=== PATIENT | female | born 1940 | race Caucasian/White ===

== ENCOUNTER 2019-07-31 21:07 | Emergency (ER) | payer OTHER ==
[~2019-07-31] VITALS: Ht 165.1 cm; Wt 124.7 kg
[2019-07-31] MEDS ORDERED: JANUVIA100 MG PO (21:54)
[2019-07-31] MEDS ORDERED: LOSARTAN-HCTZ1 EAC3 PO (21:55)
[2019-07-31] MEDS ORDERED: OMEPRAZOLE40 MG PO (21:56)
[2019-07-31] MEDS ORDERED: EVISTA60 MG PO (21:56)
[2019-07-31] MEDS ORDERED: VOLTAREN 50MG T50 MG PO (21:56)
[2019-07-31] MEDS ORDERED: SIMVASTATIN80 MG PO (21:57)
[2019-07-31] MEDS ORDERED: ASA81BEC PO (21:58)
[2019-07-31] MEDS ORDERED: HYTRIN 2MG CAPSU2 MG PO (21:58)
[2019-07-31] MEDS ORDERED: FELODIPINE 5 MG5 M1 PO (21:59)
[2019-07-31 22:42] LABS: ABSOLUTE NEUTROPHILS 5.6 thou/uL (1.4-8.2); BASOPHILS 0.4 % (0.0-2.0); HEMATOCRIT 34.4 % (37.0-47.0); HEMOGLOBIN 11.4 gm/dL (12.0-15.0); LYMPHOCYTES 16.9 % (24.0-44.0); MCH 29.3 pg (26.0-34.0); MCHC 33.1 g/dL (28.0-37.0); MCV 88.6 fL (80.0-100.0); MONOCYTES 5.4 % (1.0-8.0); PLATELET COUNT 183 thou/uL (150-400); POLYS 76.3 % (36.0-66.0); RBC 3.89 mil/uL (4.20-5.00); RDW 14.1 % (10.5-14.5); WBC 7.3 thou/uL (4.0-11.0)
[2019-07-31 22:54] LABS: ANION GAP 8 mmol/L (7-16); BUN 16 mg/dL (7-18); CALCIUM 9.4 mg/dL (8.5-10.1); CHLORIDE 100 mmol/L (98-107); CO2 28 mmol/L (21-32); CREATININE 1.5 mg/dL (0.6-1.0); GLUCOSE 170 mg/dL (74-106); POTASSIUM 3.9 mmol/L (3.5-5.1); SODIUM 136 mmol/L (136-145)
[2019-07-31 23:02] LABS: TROPONIN-I <0.06 ng/mL (<0.06)
[2019-08-01 01:54] VITALS: BP 1523/60
--- NOTE | 2019-08-02 07:43 | EKG ---
[facility] [place] [address] ELECTROCARDIOGRAM REPORT Name: GUSTAVO CONROY Room #: [facility]#: [id number] Admission: 07/31/19 Attend Phys: Discharge: 08/01/19 Date of : 42 Report #: [id number] THIS REPORT FOR: cc: Storm Oneill MD, Rene P. 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: NO : 1940 Requested By: Marty Sosa Order Number: [id number] MD: Will Cazares Measurements Intervals [place] Rate: 101 P: 43 NJ: 207 QRS: -53 QRSD: 124 T: 34 QT: 359 QTc: 466 Interpretive Statements Sinus tachycardia Borderline prolonged [place] interval RBBB and LAFB No previous ECG available for comparison Electronically Signed On 08-02-2019 7:42:23 CDT by Will Cazares [email or web address] <ELECTRONICALLY SIGNED> By: Will Cazares MD, [facility] 08/02/19 0742 30 30 Will Cazares MD, [facility] /EPI
== END 2019-08-01 01:50 | disposition home or self-care (01) ==
LOC: ER 21:07
PROVIDERS: Emergency Medicine
DX: R07.89 Other chest pain (principal); Z79.899 Other long term (current) drug therapy; Z79.82 Long term (current) use of aspirin; R00.2 Palpitations

== ENCOUNTER → 2020-03-14 | Outpatient (CLI) | payer OTHER ==
[~2020-03-14] MED LIST: ASA81BEC PO; EVISTA60 MG PO; FELODIPINE 5 MG5 M1 PO; HYTRIN 2MG CAPSU2 MG PO; JANUVIA100 MG PO; LOSARTAN-HCTZ1 EAC3 PO; OMEPRAZOLE40 MG PO; SIMVASTATIN80 MG PO; VOLTAREN 50MG T50 MG PO
== END ==
LOC: ULTRA 15:24
PROVIDERS: ATTEND Family Medicine
DX: M79.601 Pain in right arm (principal)

== ENCOUNTER 2020-10-28 18:57 | Inpatient (IN) | payer OTHER ==
[~2020-10-28] VITALS: Ht 170.2 cm; Wt 128.4 kg
--- NOTE | ~2020-10-28 | HC ---
[facility] [place] [address] CONSULTATION Name: GUSTAVO CONROY Room #: 244-P [facility] IN M.R.#: [id number] Admission: 10/28/20 Attend Phys: Tee Noel MD Discharge: Date of : 42 Report #: [id number] THIS REPORT FOR: cc: Storm Oneill MD, Rene P. MD Al-Absi,Promise Bush MD ~ DOC #: [id number] Promise Stallings MD DATE OF SERVICE: 10/30/2020 RENAL CONSULTATION REASON FOR CONSULTATION: Acute kidney injury. HISTORY OF PRESENT ILLNESS: A 79-year-old with extensive oncological history. She has diffuse B cell lymphoma diagnosed in 10/2020 after a submandibular lymph node biopsy. She has early stage lung cancer stage IA3, diagnosed in 11/2019. She received stereotactic radiation therapy for that. Most recently, she was discovered to have 10% plasma cells of her bone marrow in 12/2019 as a workup for her lymphoma. 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 She was started on Revlimid and dexamethasone. Second cycle began on October 28. She uses Revlimid, dexamethasone, carfilzomib. She presented with weakness and was not able to provide history given her severe mental status changes. She was found to have significant worsening of her kidney function from a baseline of around 1.5-1.7. She was not making any urine. There was a suspicion that the patient was having sepsis and she was extremely hypotensive and was admitted to the intensive care unit. She is currently being evaluated by Infectious Disease, Hematology/Oncology, Cardiology got involved because of AFib. I was asked to evaluate her renal function. PAST MEDICAL HISTORY: 1. Diabetes mellitus. 2. Lung cancer. 3. Hypertension. 4. Lymphoma. 5. Myeloma. ALLERGIES: SULFA AND LISINOPRIL. FAMILY HISTORY: Hypertension. REVIEW OF SYSTEMS: GENERAL: Significant for fever and chills. CARDIOVASCULAR: No chest pain or palpitation. PULMONARY: No cough or hemoptysis. GASTROINTESTINAL: No nausea or vomiting, but decreased oral intake. [facility] [address] [place] [address] CONSULTATION Name: GUSTAVO CONROY Room #: 244-P [facility] IN M.R.#: [id number] Admission: 10/28/20 Attend Phys: Tee Noel MD Discharge: Date of : 41 Report #: [id number] MUSCULOSKELETAL: Dermatitis of both lower extremities. NEUROLOGICAL: Altered mental status. PHYSICAL EXAMINATION: GENERAL: The patient had acute mental status changes. VITAL SIGNS: Blood pressure was 125/57, on Levophed. She was on Cardizem drip. HEAD AND NECK: No jugular venous distention. CHEST: Decreased air entry, bilateral. CARDIOVASCULAR: No rub. ABDOMEN: Soft, nontender. EXTREMITIES: Lower extremities, +1 edema with dermatitis, cellulitis. LABORATORY VALUES: White blood cell count 5.5, hemoglobin 8.7, platelets 60,000. Sodium is 137, BUN is 33, creatinine is 3.0. IMPRESSION AND PLAN: 1. Severe sepsis with septic shock. 2. Immunocompromised status, receiving multiple chemotherapeutic antibodies and monoclonal therapy for her myeloma. 3. Lung cancer. 4. Lymphoma. 5. Myeloma. 6. Acute kidney injury. The patient's acute kidney injury is well explained by her current presentation. 7. Continue IV fluid. 8. Septic workup initiated. 9. Appropriate antibiotic initiated. 10. Keep on the IV fluid. 11. Follow up cultures. 12. Wean off pressors. 13. We will continue to follow. Promise Stallings MD AIA/GROVER By: [id number] Promise Stallings MD /nt
[~2020-10-28 18:57] MED LIST changes: +LOSARTAN POTAS100 MG PO; -LOSARTAN-HCTZ1 EAC3 PO
[2020-10-28 19:00] VITALS: BP 112/43
[2020-10-28 19:30] LABS: BE(vivo) 0.1 mmol/L (-2 to +3); HCO3 23.4 mmol/L (22.0-26.0); PCO2 32.6 mmHg (35.0-45.0); PO2 61.8 mmHg (80.0-100.0); pH 7.473 (7.360-7.450); sO2 93.3 % (92.0-98.0)
[2020-10-28 19:57] LABS: ABSOLUTE NEUTROPHILS 1.5 thou/uL (1.4-8.2)
[2020-10-28 19:58] LABS: BASOPHILS 0.5 % (0.0-2.0); EOSINOPHILS 2.3 % (0.0-3.0); HEMATOCRIT 27.2 % (37.0-47.0); HEMOGLOBIN 9.2 gm/dL (12.0-15.0); LYMPHOCYTES 24.8 % (24.0-44.0); MCH 31.3 pg (26.0-34.0); MCHC 33.7 g/dL (28.0-37.0); MCV 92.9 fL (80.0-100.0); MONOCYTES 4.8 % (1.0-8.0); PLATELET COUNT 59 thou/uL (150-400); POLYS 67.6 % (36.0-66.0); RBC 2.93 mil/uL (4.20-5.00); RDW 17.9 % (10.5-14.5); WBC 2.2 thou/uL (4.0-11.0)
[2020-10-28 20:23] LABS: ALBUMIN 2.1 g/dL (3.4-5.0); CALCIUM 7.6 mg/dL (8.5-10.1); CREATININE 1.7 mg/dL (0.6-1.0); POTASSIUM 3.3 mmol/L (3.5-5.1); TOTAL BILIRUBIN 0.5 mg/dL (0.2-1.0); TOTAL PROTEIN 4.5 g/dL (6.4-8.2)
[2020-10-28 20:32] LABS: URINE BILIRUBIN NEGATIVE (Negative); URINE BLOOD NEGATIVE (Negative); URINE CLARITY CLEAR; URINE COLOR YELLOW; URINE GLUCOSE-RANDOM* 1+ (Negative); URINE KETONES NEGATIVE (Negative); URINE LEUKOCYTES-REFLEX NEGATIVE (Negative); URINE NITRITE-REFLEX NEGATIVE (Negative); URINE PROTEIN (DIPSTICK) TRACE (Negative); URINE SPECIFIC GRAVITY 1.015 (1.005-1.035); URINE UROBILINOGEN 0.2 E.U./dl (0.2-1.0)
[2020-10-28 21:47] VITALS: BP 134/38
[2020-10-28] MEDS ORDERED: ATORVASTATIN CA20 MG PO (22:01)
[2020-10-28] MEDS ORDERED: HYDROCODON-ACE1 EAC7 PO (22:01)
[2020-10-28] MEDS ORDERED: FUROSEMIDE 40 M40 M1 PO (22:03)
[2020-10-28] MEDS ORDERED: NEURONTIN300 MG PO (22:04)
[2020-10-28] MEDS ORDERED: KLOR-CON M2020 MEQ PO (22:05)
[2020-10-28] MEDS ORDERED: GABAPENTIN600 M1 PO (22:06)
[2020-10-28] MEDS ORDERED: NORVASC5 MG PO (22:18)
[2020-10-28] MEDS ORDERED: ACYCLOVIR 400400 MG PO (22:18)
[2020-10-28] MEDS ORDERED: CLONIDINE HCL0.1 MG PO (22:19)
[2020-10-28 22:44] VITALS: BP 131/99
[2020-10-28 23:56] VITALS: BP 109/42
[2020-10-29] VITALS (104 sets, daily range): BP systolic 65–187; BP diastolic 24–156
--- NOTE | 2020-10-29 00:10 | NUR ---
RECEIVED REPORT FROM ER NURSE. PT ARRIVED TO 2N ROOM 206 AT 2225. PT WAS INITIALLY VERY LETHARGIC BUT BECAME MORE ARROUSABLE AND WAS ABLE TO FOLLOW SIMPLE COMMANDS. ADMISSION HX AND ASSESSMENT COMPLETED WITH HELP FROM . IVF AND ABX ADMINISTERED ORDERED. AXILLARY TEMP 103.5. TYLENOL SUPPOSITORY GIVEN AND ICE PACKS APPLIED TO AXILLA. PT NOTED TO HAVE REDNESS AND VERY WARM SKIN TO BLE, POSSIBLE CELLULITIS. ELEVATED LEGS ON PILLOWS. [place] ALLRED NP FOR HOSPITALIST CAME TO SEE PT AND RECOMMENDED TRANSFER TO ICU. AROUND MIDNIGHT, PT WAS TRANSFERED TO ICU WITH HER BELONGINGS. REPORT GIVEN TO MEDICAL AFFAIRS MANAGER. PT'S WAS GIVEN CAB VOUCHER TO GET HOME HE DOES NOT DRIVE.
[2020-10-29 03:26] LABS: HEMATOCRIT 26.2 % (37.0-47.0); HEMOGLOBIN 8.7 gm/dL (12.0-15.0); MCH 31.3 pg (26.0-34.0); MCHC 33.3 g/dL (28.0-37.0); MCV 94.2 fL (80.0-100.0); RBC 2.78 mil/uL (4.20-5.00); RDW 17.8 % (10.5-14.5); WBC 4.4 thou/uL (4.0-11.0)
[2020-10-29 03:31] LABS: CALCIUM 6.4 mg/dL (8.5-10.1); CREATININE 2.3 mg/dL (0.6-1.0)
[2020-10-29 03:39] LABS: APTT 32.5 Seconds (24.5-32.8); INR 1.22; PROTIME 13.2 Seconds (10.5-12.1)
--- NOTE | 2020-10-29 07:09 | EKG ---
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 : 1940 Requested By: Jaylon Gaines Order Number: [id number] MD: Emmett Hernandez Measurements Intervals [place] Rate: 103 P: 0 WV: 59 QRS: -57 QRSD: 134 T: 78 QT: 345 QTc: 452 Interpretive Statements Sinus tachycardia Atrial premature complexes Probable left atrial enlargement Nonspecific IVCD with LAD Left ventricular hypertrophy Anterior Q waves, possibly due to LVH Lateral leads are also involved Compared to ECG 07/31/2019 21:31:16 Atrial premature complex(es) now present Intraventricular conduction delay now present Left anterior fascicular block no longer present Right bundle-branch block no longer present Electronically Signed On 10-29-2020 7:09:21 CDT by Emmett Hernandez [email or web address] <ELECTRONICALLY SIGNED> By: Emmett Hernandez MD, [facility] 10/29/20 07 04 04 Emmett Hernandez MD, [facility] /EPI
--- NOTE | 2020-10-29 08:10 | NUR ---
TRIED PAGING DR. BLEVINS. NO URINE OUTPUT. AWAITING CALL BACK.
--- NOTE | 2020-10-29 08:35 | NUR ---
DR. BLANE LOCKETT CALLED BACK. UPDATE GIVEN. HISTORY GIVEN. MD STATES HE WILL ROUND ON PATIENT LATER. NO ORDERS.
--- NOTE | 2020-10-29 08:45 | NUR ---
TEXTED DR. BLEVINS ABOUT NO URINE OUTPUT AWAITING RESPONSE. DR. LUBIN HERE AND ROUNDED ON PT.
--- NOTE | 2020-10-29 09:30 | NUR ---
PT CALLED. UPDATE GIVEN. REPORTED NO URINE OUTPUT AND KIDNEY CONSULT DONE. EMOTIONAL SUPPORT GIVEN.
[2020-10-29] MEDS ORDERED: BISOPROLOL FUMAR5 MG PO (09:52)
[2020-10-29] MEDS ORDERED: HYDROCHLOROTH12.5 M2 PO (09:53)
[2020-10-29] MEDS ORDERED: REVLIMID10 MG PO (10:03)
[2020-10-29] MEDS ORDERED: DEXAMETHASONE 44 M1 PO (10:05)
[2020-10-29] MEDS ORDERED: KYPROLIS30 MG (10:06)
--- NOTE | 2020-10-29 12:15 | NUR ---
DR. LUBIN CALLED, UPDATE GIVEN, STILL NO URINE DESPITE NEW CATHETER. ORDERS GIVEN. FLUID BOLUS STARTED AND WILL GIVEN LASIX AFTERWARD. DR. BLANE LOCKETT HERE. UPDATE GIVEN. ROUNDED ON PT. ORDERS GIVEN.
--- NOTE | 2020-10-29 14:14 | NUR ---
Chart review. Discussed during los and am rounds. She was resting with CPAP on and eye closed. Noted ID consulted. She been getting chemo at and became very weak at home. Will cont. following as needed for dc needs.
--- NOTE | 2020-10-29 14:47 | NUR ---
PT WITH HR 150S-160S. REGULAR, COULD BE AFLUTTER. STAT EKG ORDERED. DR. BLEVINS CALLED. CONSULTS FOR DR. ELIZONDO AND DR. CHRISTEN CARMEN.
--- NOTE | 2020-10-29 15:10 | NUR ---
12 LEAD EKG DONE. PT ASYMPTOMATIC. DR. ELIZONDO HERE. ORDERS GIVEN FOR AMIODARONE BOLUS AND GTT PER PROTOCOL AND CARDIZEM TO START AT LOW RATE GIVEN LEVOPHED INFUSING. AWAITING MEDS. PT AT BEDSIDE AND UPDATED. PT STARTING TO MAKE ADEQUATE URINE NOW.
--- NOTE | 2020-10-29 15:37 | EKG ---
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: FSCHWALBE : 1940 Requested By: Tee Noel Order Number: [id number] MD: Emmett Hernandez Measurements Intervals [place] Rate: 159 P: NJ: QRS: -66 QRSD: 125 T: 112 QT: 296 QTc: 482 Interpretive Statements RBBB Suspect atrial flutter 2:1 block Baseline wander in lead(s) V6 Compared to ECG 10/28/2020 19:05:52 Sinus tachycardia no longer present Atrial premature complex(es) no longer present Left ventricular hypertrophy no longer present Q waves no longer present Electronically Signed On 10-29-2020 15:37:29 CDT by Emmett Hernandez [email or web address] <ELECTRONICALLY SIGNED> By: Emmett Hernandez MD, FAC 10/29/20 1537 1506 1506 Emmett Hernandez MD, FAC /EPI
--- NOTE | 2020-10-29 17:00 | NUR ---
pt temp starting to go up again. shivering. Called Dr. cleveland for tylenol orders and diet orders. Orders given. Pt started on clear liquid diet.
--- NOTE | 2020-10-29 18:51 | NUR ---
PT NOT PROGRESSING TOWARDS GOALS. REMAINS ON 20MCG/MIN OF LEVOPHED. HR STILL 150S. AMIODARONE AND CARDIZEM ON. TOLORATING CLEAR LIQUIDS. C/O SORE THROAT. WARM BROTH GIVEN. TYLENOL X 1 FOR FEVER GIVEN. LEGS ELEVATED ON TWO PILLOWS.
[2020-10-30] VITALS (51 sets, daily range): BP systolic 92–147; BP diastolic 36–108
[2020-10-30 05:18] LABS: HEMATOCRIT 25.8 % (37.0-47.0); HEMOGLOBIN 8.7 gm/dL (12.0-15.0); MCH 31.9 pg (26.0-34.0); MCHC 33.6 g/dL (28.0-37.0); PLATELET COUNT 60 thou/uL (150-400); RBC 2.71 mil/uL (4.20-5.00); RDW 18.5 % (10.5-14.5); WBC 5.5 thou/uL (4.0-11.0)
[2020-10-30 06:03] LABS: CALCIUM 6.4 mg/dL (8.5-10.1); POTASSIUM 4.1 mmol/L (3.5-5.1)
--- NOTE | 2020-10-30 07:59 | HC ---
[facility] [place] [address] CONSULTATION Name: GUSTAVO CONROY Room #: [facility]-P ADM IN M.R.#: [id number] Admission: 10/28/20 Attend Phys: Tee Noel MD Discharge: Date of : 42 Report #: [id number] THIS REPORT FOR: cc: Storm Oneill MD, Rene P. MD McKittrick, Richard James MD ~ DOC #: [id number] cc: Strom Oneill MD, Tee Noel MD, Geovanny Geronimo MD, MD Emerson Xie MD REQUESTING PHYSICIAN: Tee Noel M.D. REASON FOR CONSULTATION: History of myeloma. HISTORY OF PRESENT ILLNESS: The patient is a 79-year-old female who was seen in the office yesterday by our nurse practitioner for her cycle #2, day #15 carfilzomib chemotherapy. She was somewhat weak then, but reported when she got home with her , was unable to get out of the vehicle by herself. He called the hammerer and she was brought to the hospital where she has had a fever up to 103.5, has been weak and was admitted. Note that last night, her pressure was low and so she was moved to the ICU. Her lactic acid had increased. She is now on pressors and also receiving 3 liters per nasal cannula oxygen. The patient is examined in the ICU. The patient at this time has some neck pain, which she thinks is from the bed. She says she did have thrush, which she thinks is improved. She is not aware of any neck mass. She is not aware of any definite nausea or stomach feels a bit unsettled. She does not describe diarrhea or constipation. Does not describe dysuria. Does not describe any blood or urine or stool. Does having the leg swelling of several months' duration. They have tried different diuretics and has been slightly red. She thinks more in the left back calf than the right back calf and she reports being weaker. Past history mostly from the chart is notable for multiple myeloma appears to be a kappa subtype originally found on a bone marrow biopsy done as staging of the lymphoma in 12/2019. At that time, there was 10% cells, reportedly her myeloma progressed and then she began Revlimid and dexamethasone, I believe in May. Her protein did not decrease much and then carfilzomib was added, I believe in September. Since that time, there has been a big or very large decrease in her kappa light chain and her serum free light chain ratio. As mentioned above, she has been receiving carfilzomib, Revlimid 10 mg days 1 through 21 out of 28 days and then the weekly dexamethasone 20 mg weekly. Past history is also notable for diffuse large B cell lymphoma, germinal center type found on a submandibular biopsy on 12/04/2019, this was found after an [facility] [address] [place] [address] CONSULTATION Name: RAFIQFALLONKATRINA Room #: 244-P [facility] IN M.R.#: [id number] Admission: 10/28/20 Attend Phys: Tee Noel MD Discharge: Date of : 42 Report #: [id number] earlier CAT scan done to evaluate chest pain, found a lung nodule, then a PET scan found the submandibular lymph node. The patient received 4 cycles of mini-CHOP x4 between 12/2019 in 02/2020. With regards to the lung nodule, it was PET avid. No biopsy was performed but thought that clinically it was most likely a malignancy and this received SBRT radiation therapy completed in the fall of 2019. The patient also has a history of hypertension, diabetes, neuropathy, hyperlipidemia. There also may be a question of sleep apnea. We need to clarify, there is a comment made, this sounds like the patient might have been on CPAP at home, but I am not sure if it is clear. FAMILY HISTORY: No blood disorders in her parents. She did have a son . She has a daughter that is alive. SOCIAL HISTORY: She is originally from [place] herself. She tells me that her mother made up her name, Gustavo. She has a supportive . She mostly worked at home. Her works for [employer] not sure what role. I do not believe she is a smoker or drinker. MEDICATIONS: At this time in the hospital currently include famotidine 10 b.i.d. IV, vancomycin 500 mg IV q. 12, guaifenesin 600 mg b.i.d., vasopressin drip, norepinephrine drip, also receiving Zosyn 3.375 IV q. 8, ipratropium, albuterol inhalation therapy, Tylenol p.r.n., MiraLax p.r.n., Zofran p.r.n. LABORATORY DATA: Here are notable for creatinine originally 1.7, this morning 2.3. Liver functions normal. Albumin low at 2.1 yesterday. Lactic acid, which was 2.1 on admission, was up to 3 late last night, this morning is 3.8. INR 1.22. APTT 32.5. Fibrinogen 281 yesterday. White count yesterday was 2.2, today is 4.4, hemoglobin yesterday 9.2, today 8.7, platelets which were yesterday 59, are today 77, absolute neutrophils yesterday were 1.5. No differential today. COVID test was negative. UA did not appear to show any specific abnormalities. Imaging done here so far includes a chest x-ray that raised the question of nonventilation the lungs with hypoventilatory states in the lung bases with possible infiltrate the left lower lobe and lingula. PHYSICAL EXAMINATION: VITAL SIGNS: Height is 5 feet 7, 170.2 cm, weight 247.6 or 255 pounds, which would be roughly 112 or 115.9 kilograms. Recent blood pressure is 120/39 again that is with pressors, O2 sat 97%, respirations 13, temperature currently 99.9, pulse 111, oxygen needs at this time, currently at 3 liters per nasal cannula, O2 sat of 97. Mood: The patient is pleasant and somewhat fuzzy answers due to fatigue. NEUROLOGIC: Speech pattern slow but appears accurate, thought pattern appeared adequate, though she is a little bit slow in her mentation and localization, able to move arms a little bit. FACE: Symmetrical. [facility] [address] [place] [address] CONSULTATION Name: GUSTAVO CONROY Room #: [address] [place] [address] IN M.R.#: [id number] Admission: 10/28/20 Attend Phys: Tee Noel MD Discharge: Date of : 42 Report #: [id number] LUNGS: Appear to be clear without rhonchi or wheezes anteriorly. HEENT: Oropharynx without leukoplakia or erythema or ulcerations. ABDOMEN: Quite obese. No masses. HEART: Regular rate, a little tachycardic. EXTREMITIES: Have some edema up to about the knee, also has redness on both her shins and above her ankles and also in the back of her calves. She reports there has been some weeping that I did not notice any at this time, but that maybe in the dependent part of her leg. ASSESSMENT AND PLAN: 1. [place] light chain myeloma as above the patient appears to be responding to her Revlimid, carfilzomib, and dexamethasone. 2. Diffuse large B cell lymphoma, stage 1 by history, not known to be recurrent. 3. Presumed lung cancer, status post SBRT. 4. Presumed or apparent sepsis. Cultures negative, may be either related to cellulitis or early pneumonia. The patient on broad spectrum antibiotics. Cultures are pending. Also, patient on pressors for pressure support. 5. Acute kidney injury with decreased urine output. Defer pressors and fluids to others. 6. Cellulitis. Baseline visual impression obtained. We will follow clinically. The patient on antibiotics. 7. Respiratory failure. The patient is requiring 3 liters of oxygen. Continue monitoring. 8. Bilateral leg swelling, had been on some outpatient Lasix. We will defer to others. Recent outpatient ultrasound unremarkable. 9. Cytopenias, likely partly related to myeloma conditioning chemotherapy. 10. Hypertension history. Management per others. 11. Diabetes type 2 history. Management per others. 12. Hyperlipidemia. Management per others. 13. History of neuropathy management per others. 14. History of H. pylori infection with reported GI ulcerations. The patient on management, will need outpatient followup. 15. Recent thrush infection reported therapies. No evidence at this time. We will follow with you. MD BRANDY Alejandro/DEAN <ELECTRONICALLY SIGNED> By: Emerson Griffiths MD 10/30/20 0759 075 52 Emerson Griffiths MD /nt
--- NOTE | 2020-10-30 09:15 | 2DMMODE ---
[facility] [place] [address] 2 D/M-MODE ECHOCARDIOGRAM Name: GUSTAVO CONROY Room #: 244-P ADM IN M.R.#: [id number] Admission: 10/28/20 Attend Phys: Tee Noel MD Discharge: Date of : 42 Report #: [id number] THIS REPORT FOR: cc: Storm Oneill MD, Rene P. MD Santiago, Patrick MD [facility] ~ APPROVED REPORT Study performed: 10/30/2020 08:15:12 EXAM: Comprehensive 2D, Doppler, and color-flow Echocardiogram Patient Location: ICU Room #: 244 Status: routine BSA: 2.14 HR: 110 bpm BP: 125/57 mmHg Rhythm: AFlutter/tachy Other Information Study Quality: Good Indications Aflutter, tachycardia. (HR ranged from 95-120bpm). 2D Dimensions RVDd: 37.88 mm IVSd: 12.50 (7-11mm) LVOT Diam: 19.69 (18-24mm) LVDd: 46.40 mm PWd: 12.06 (7-11mm) Ascending Ao: 31.53 (22-36mm) LVDs: 32.98 (25-40mm) Left Atrium: 38.89 (27-40mm) Aortic Root: 30.03 mm Volumes Left Atrial Volume (Systole) Single Plane 4CH: 75.12 mL Single Plane 2CH: 76.75 mL LA ESV Index: 38.00 mL/m2 Aortic Valve AoV Peak Ranjith.: 2.36 m/s AO Peak Gr.: 22.33 mmHg LVOT Max P.51 mmHg LVOT Max V: 1.84 m/s [facility] [address] [address] 2 D/M-MODE ECHOCARDIOGRAM Name: GUSTAVO CONROY Room #: [address] [place] [address] [place] [facility].#: [id number] Admission: 10/28/20 Attend Phys: Cheri Raya Discharge: Date of : 42 Report #: [id number] TRI Vmax: 2.37 cm2 Mitral Valve MV Decel. Time: 187.13 ms MV E Max Ranjith.: 1.21 m/s Pulmonary Valve PV Peak Ranjith.: 1.15 m/s PV Peak Gr.: 5.32 mmHg Tricuspid Valve RAP Estimate: 5.00 mmHg Left Ventricle The left ventricle is normal size. There is normal LV segmental wall motion. Mild concentric left ventricular hypertrophy. Left ventricular systolic function is normal. LVEF is 60%. This study is not technically sufficient to allow evaluation of the LV diastolic function due to tachycardia. Right Ventricle The right ventricle is normal size. The right ventricular systolic function is normal. Atria Left atrium is mildly dilated. The right atrium size is normal. Aortic Valve Aortic valve is trileaflet; mildly calcified. No aortic regurgitation is present. There is no aortic valvular stenosis. Mitral Valve The mitral valve is normal in structure. Mild mitral annular calcification. There is no mitral valve regurgitation noted. No evidence of mitral valve stenosis. Tricuspid Valve The tricuspid valve is normal in structure. There is no tricuspid valve regurgitation noted. Unable to assess PA pressure. Pulmonic Valve The pulmonary valve is normal in structure. Trace pulmonic regurgitation. Great Vessels The aortic root is normal in size. The ascending aorta is normal in [facility] [address] [place] [address] 2 D/M-MODE ECHOCARDIOGRAM Name: [facility] Room #: 244-P ADM IN M.R.#: [id number] Admission: 10/28/20 Attend Phys: Cheri Raya Discharge: Date of : 42 Report #: [id number] size. IVC is normal in size and collapses >50% with inspiration. Pericardium There is no pericardial effusion. <Conclusion> Normal left ventricular size Mild concentric hypertrophy Ejection fraction 60% Normal right ventricular size/function Left atrium mildly dilated Color-flow Doppler study was performed of the aortic/mitral/tricuspid/pulmonary valve Mild aortic valve sclerosis without stenosis Mild mitral annular calcification No mitral valve insufficiency No tricuspid valve insufficiency No pericardial effusion Normal aortic root size. <ELECTRONICALLY SIGNED> By: Emmett Hernandez MD, [facility] 10/30/2015 4 4 Emmett Hernandez MD, FACC /INF
[2020-10-30 09:58] LABS: ABSOLUTE NEUTROPHILS 4.1 thou/uL (1.4-8.2); ANISOCYTOSIS 1+; METAMYELOCYTES 3 %; MYELOCYTES 2 %; PLATELET ESTIMATE DECREASED
[2020-10-30 10:04] LABS: CHOLESTEROL 102 mg/dL (<200); HDL CHOLESTEROL 50 mg/dL (>40); LDL CHOLESTEROL 31 mg/dL (<100); TRIGLYCERIDE 109 mg/dL (<150); VLDL 22 mg/dL (<40)
--- NOTE | 2020-10-30 13:30 | NUR ---
Spouse returned cm call on 10/30/20 9846. intro to cm and dcp. Discussed during los and am rounds. CM visited with pt at bedside. She A & O x 4, pleasant and able to make her needs know. Education on dcp, hh and rehab. She voiced her 1st choice is home and she doesnt feel she will need anything at home. Education on seeing how she does with therapy. Spouse cecy voiced that she might need home health or therapy cause of her weakness. She was up in recliner chair and she needed assist to get up. Noted spouse uses cane to walk with himself. will cont following as needed for dc needs.
--- NOTE | 2020-10-30 15:36 | NUR ---
VAT CONSULTED FOR CVL PLACEMENT. LEFT 6FR TL JACC CATHETER PLACED, TRIMMED 25CM WITH 5CM EXTERNAL. AWAITING CXR FOR PLACEMENT CONFIRMATION. PT TOLERATED WELL.
--- NOTE | 2020-10-30 16:05 | NUR ---
RADIOLOGY REPORT: LEFT IJ TIP OVERLIES SVC. LINE RELEASED FOR USE, PER HOSPITAL VASCULAR ACCESS POLICY.
[2020-10-31] VITALS (31 sets, daily range): BP systolic 83–148; BP diastolic 44–98
[2020-10-31 05:05] LABS: HEMATOCRIT 22.6 % (37.0-47.0); HEMOGLOBIN 7.7 gm/dL (12.0-15.0); MCV 93.9 fL (80.0-100.0); PLATELET COUNT 26 thou/uL (150-400); RBC 2.41 mil/uL (4.20-5.00); RDW 18.5 % (10.5-14.5); WBC 3.5 thou/uL (4.0-11.0)
[2020-10-31 05:49] LABS: ALBUMIN 1.3 g/dL (3.4-5.0); CALCIUM 6.1 mg/dL (8.5-10.1); CREATININE 2.7 mg/dL (0.6-1.0); PHOSPHORUS 3.2 mg/dL (2.5-4.9); POTASSIUM 3.4 mmol/L (3.5-5.1)
--- NOTE | 2020-10-31 05:51 | NUR ---
PT IS MORE ALERT AND ORIENTED OVERALL THAN PREVIOUS NIGHT WITH THIS RN. ENDORSES INCREASING PAIN IN LE, NOTED THAT LEGS ARE BECOMING MORE RED AND WEEPING THROUGH THIS SHIFT, ELEVATED X2 PILLOWS EACH. RESTING QUIETLY FOR MOST OF SHIFT. UP TO BSC X2 RN AND GAIT BELT FOR PIVOT, DID FAIR. SLOWLY PROGRESSING TOWARD GOALS. CARDIZEM OFF SINCE 0000, HR MAINTAINING 70-80'S, STILL REMAINS VERY IRREGULAR, INTERMITTENT AFIB/SR,
--- NOTE | 2020-10-31 08:45 | NUR ---
WOUND CARE CONSULT; PT AWAKE, ALERT, COOPERATIVE, STATES SHE HAS HX LOWER LEG EDEMA, BUT NOT THIS SEVERE AND NOW PAINFUL. ASSESSED LE W/ KERFER MACHINE OPERATOR, REDNESS BILAT, L>R, WEEPING, EDEMATOUS, SLIGHTLY WARM TO TOUCH, HAVING ULTRA SOUND THIS AM TO R/O BLOOD CLOT, ON ANTIBIOTICS FOR CELLULITIS, WILL CONSULT WOUND DR, LYMPHEDEMA WRAPS? KERFER MACHINE OPERATOR AWARE
--- NOTE | 2020-10-31 12:00 | NUR ---
Discussed during los and am rounds. No anticipated dc over the weekend. Will cont. following as needed for dc needs. To work with therapy over the weekend to maximize strength in order to be able to dc home with possible hh if needed early next week.
[2020-10-31 13:05] LABS: ABSOLUTE NEUTROPHILS 2.1 thou/uL (1.4-8.2); ANISOCYTOSIS 1+; LARGE PLATELETS RARE; PLATELET ESTIMATE MARKEDLY DECREASED
--- NOTE | 2020-10-31 13:16 | EKG ---
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: NIKIA : 1940 Requested By: Roselia Briones Order Number: [id number] MD: Emmett Hernandez Measurements Intervals [place] Rate: 89 P: -13 MS: 190 QRS: -41 QRSD: 115 T: 7 QT: 414 QTc: 504 Interpretive Statements Sinus rhythm with PAC's Multiple premature complexes, vent & supraven Left anterior fascicular block Low voltage, precordial leads Borderline T abnormalities, anterior leads Compared to ECG 10/29/2020 15:06:04 Left anterior fascicular block now present Low QRS voltage now present T-wave abnormality now present Right bundle-branch block no longer present Atrial flutter no longer present 2:1 AV block no longer present Electronically Signed On 10-31-2020 13:16:40 CDT by Emmett Hernandez [email or web address] <ELECTRONICALLY SIGNED> By: Emmett Hernandez MD, [facility] 10/31/20 1316 [id number] Emmett Hernandez MD, [facility] /EPI
[2020-11-01] VITALS (21 sets, daily range): BP systolic 125–170; BP diastolic 53–78
[2020-11-01 05:02] LABS: HEMATOCRIT 23.9 % (37.0-47.0); MCH 31.7 pg (26.0-34.0); MCHC 33.7 g/dL (28.0-37.0); MCV 94.2 fL (80.0-100.0); RBC 2.54 mil/uL (4.20-5.00); RDW 18.8 % (10.5-14.5); WBC 2.8 thou/uL (4.0-11.0)
[2020-11-01 05:09] LABS: ALBUMIN 1.4 g/dL (3.4-5.0); CALCIUM 6.3 mg/dL (8.5-10.1); CREATININE 2.3 mg/dL (0.6-1.0); PHOSPHORUS 2.7 mg/dL (2.5-4.9); POTASSIUM 3.5 mmol/L (3.5-5.1)
--- NOTE | 2020-11-01 06:09 | NUR ---
PT UP TO BSC WITH WALKERX2 ASSIST. RESTING THROUGHOUT SHIFT. AFIB, RATES UP TO 150'S WHEN UP TO COMMODE, SELF CORRECTED, MAINTAINING 80-100'S. BP STABLE OFF GTTS. X1 HYDROCODONE FOR PLEURITIC PAIN.
--- NOTE | 2020-11-01 09:15 | NUR ---
Pt given incentive spirometer and instructed on use per Dr. Griffiths.
--- NOTE | 2020-11-01 10:14 | NUR ---
Pt appetite poor - RN encouraged pt to ask family to bring high protein foods she would eat. Given crackers and PB after poor breakfast intake. Pt symptomatic - hands shaking, feeling light headed - improved after snack.
--- NOTE | 2020-11-01 17:50 | NUR ---
Pt sitting in chair for lunch and dinner, appetite very poor, difficult to encourage her to eat more than a couple of bites. Pt reports disliking the Ensure provided with each tray, RN encouraged pt to have family bring her favorite foods next time they visit. Encouraged pt to look past lack of salt in current diet and try to eat anyways. Decently mobile with walker and RN assist.
--- NOTE | 2020-11-01 18:47 | NUR ---
Pt leg compression dressings changed. Still very edematous with left leg carrying more edema and larger area of skin breakdown. Pt tolerated dressing change well.
[2020-11-02] VITALS (17 sets, daily range): BP systolic 127–159; BP diastolic 48–866
[2020-11-02 05:47] LABS: ALBUMIN 1.5 g/dL (3.4-5.0); CALCIUM 6.6 mg/dL (8.5-10.1); PHOSPHORUS 2.6 mg/dL (2.5-4.9); POTASSIUM 3.4 mmol/L (3.5-5.1)
--- NOTE | 2020-11-02 08:04 | NUR ---
PT MAKING SLOW PROGRESS TOWARD GOALS. PT SLEEP INTERMITTENTLY OVERNIGHT. WOULD AWAKEN AND BE BRIEFLY CONFUSED ABOUT HER LOCATION BUT WOULD ACCEPT REALITY ORIENTATION EACH TIME. OTHERWISE ORIENTED TO NAME, DATE AND SITUATION.
--- NOTE | 2020-11-02 16:53 | NUR ---
1653- Nurse called report to CCU RN for patient transfer to room 212 from room 244.
--- NOTE | 2020-11-02 17:57 | NUR ---
ASSUMED CARE OF PT AROUND 1729. PT ALERT AND ORIENTED TIMES FOUR. VSS. SR ON TELE, SUN TO DD, IVF INFUSING PER ORDER. PT DENIES PAIN/SOA. PT UP TO CHAIR WITH ASSIST OF TWO. PT TOLERATES MEDS, BUT EAT VERY LITTLE OF DINNER. PT AND DAUGHTERT AT BEDSIDE. WILL CONTINUE TO MONITOR.
[2020-11-03] VITALS (7 sets, daily range): BP systolic 123–170; BP diastolic 54–85
--- NOTE | 2020-11-03 03:42 | NUR ---
PT HAS BEEN SLEEPING MOST OF THE NIGHT, WHILE WEARING HER HOME CPAP. RESPIRATIONS EVEN AND UNLABORED. AFEBRILE. PT WAS IN AFIB EARLIER IN THE NIGHT, BUT HAS SINCE CONVERTED TO SR. BLE WITH DRESSINGS C/D/I; BLE ELEVATED ON PILLOWS TO HELP REDUCE SWELLING. FALL PRECAUTIONS IN PLACE. PROGRESSING SLOWLY TOWARD POC GOALS. WILL CONTINUE TO MONITOR FURTHER.
[2020-11-03 05:15] LABS: HEMATOCRIT 25.8 % (37.0-47.0); HEMOGLOBIN 8.6 gm/dL (12.0-15.0); MCH 31.2 pg (26.0-34.0); MCHC 33.5 g/dL (28.0-37.0); MCV 93.1 fL (80.0-100.0); RBC 2.77 mil/uL (4.20-5.00); RDW 18.7 % (10.5-14.5); WBC 2.9 thou/uL (4.0-11.0)
[2020-11-03 05:24] LABS: ALBUMIN 1.7 g/dL (3.4-5.0); CALCIUM 6.6 mg/dL (8.5-10.1); CREATININE 1.9 mg/dL (0.6-1.0); PHOSPHORUS 2.5 mg/dL (2.6-4.7); POTASSIUM 3.5 mmol/L (3.5-5.1)
--- NOTE | 2020-11-03 14:26 | NUR ---
PATIENT ALERT/ORIENTED, A LITTLE FORGETFUL AT TIMES AND ANXIOUS THIS MORNING. HAD AN EPISODE OF CRYING AFTER PHYSICAL THERAPY ENTERED HER ROOM. PER PATIENT, CONVERSATION HAD MADE HER FEEL VERY ANXIOUS AND FELT LIKE SHE WAS BEING ASKED TO DO MORE THAT SHE CAN PHYSICALLY TOLERATE AT THIS TIME MOBILITY PRITCHETT. SHE UNDERSTANDS SHE IS VERY WEAK. WHILE TRANSFERING FROM BED TO CHAIR PATIENTS HEART RATE BECAME ELEVATED AND IRREGULAR. NOTIFIED CARDIOLOGY OF PRESISTENT TACHYCARDIA. ONETIME DOSE OF LOPRESSOR GIVEN WITH IMPROVEMENT. PATIENT SITTTING IN CHAIR THROUGH OUT THE DAY. VERY POOR APPETITE. CORINNE PATENT. PT/OT AND 5[facility] EVAL.
--- NOTE | 2020-11-03 23:40 | NUR ---
PT SAT UP IN CHAIR TO VISIT WITH FAMILY EARLIER IN THE SHIFT. SHE TOLERATED SITTING IN THE CHAIR WELL. PT DOES BECOME VERY SOA W/ EXERTION BUT SPO2 >90% ON RA. DRESSINGS CHANGED TO BLE CELLULITIS. BLE ELEVATED ON PILLOWS TO REDUCE SWELLING. AFIB ON TELE. HR 120S-140S WITH EXERTION, BUT IMPROVES WITH REST. PROGRESSING SLOWLY TOWARD POC GOALS. WILL CONTINUE TO MONITOR.
--- NOTE | 2020-11-04 03:21 | NUR ---
PT SLEPT MOST OF THE NIGHT WHILE WEARING HER HOME CPAP. RESPIRATIONS EVEN AND UNLABORED. SUN TO DD WITH ADEQUATE URINE OUTPUT. VSS. AFEBRILE. FALL PRECAUTIONS IN PLACE. WILL CONTINUE TO MONITOR.
[2020-11-04 03:55] VITALS: BP 150/72
[2020-11-04 05:44] LABS: ALBUMIN 1.7 g/dL (3.4-5.0); CALCIUM 6.9 mg/dL (8.5-10.1); CREATININE 1.6 mg/dL (0.6-1.0); PHOSPHORUS 2.7 mg/dL (2.6-4.7); POTASSIUM 3.3 mmol/L (3.5-5.1)
--- NOTE | 2020-11-04 08:36 | NUR ---
ASSUMED PT CARE AT 0700. PT SITTING IN CHAIR, PT ASSISTED TO BEDSIDE COMMODE TO ATTEMPT A BOWEL MOVEMENT, UNSUCCESSFUL. PT DENIES PAIN AT THIS TIME. VSS. ASSESSMENT PERFORMED CHARTED. WILL CONTINUE TO MONITOR AND FOLLOW POC.
[2020-11-04 11:17] VITALS: BP 137/84
--- NOTE | 2020-11-04 11:32 | NUR ---
PT SITTING IN CHAIR WITH FAMILY AT BEDSIDE. VSS. ASSESSMENT UNCHANGED. WILL CONTINUE TO MONITOR AND FOLLOW POC.
--- NOTE | 2020-11-04 14:51 | NUR ---
PATIENT IS A CANDIDATE FOR ACUTE REHAB AND WISHES TO COME TO [facility] AT [facility] FOR THAT REHAB. AUTHORIZATION REQUESTED FROM PATIENT'S INSURANCE THIS DATE. AWAITING RESPONSE. GAUGE AND WEIGH MACHINE OPERATOR INFORMED.
--- NOTE | 2020-11-04 16:12 | NUR ---
PT RESTING IN CHAIR, PT AND FAMILY REQUEST TO ASK ABOUT D/C ACCU CHECKS AND INSULIN IF POSSIBLE. PT STATES SHE DOES NOT TAKE INSULIN AT HOME AND HAS NOT REQUIRED ANY DURING HER HOSPITAL STAY. PTS ASSESSMENT UNCHANGED. VSS. WILL CONTINUE TO MONITOR AND FOLLOW POC.
--- NOTE | 2020-11-04 17:29 | NUR ---
met with patient, dtr and spouse at bedside. Reviewed acute rehab and skilled care. Patient, family are interested in [facility] acute rehab here at hospital. Sp with [facility] who will visit with patient, family today. Joana ZIMMERMAN practioner reports interest in [facility] and they will start auth process today.
[2020-11-04 19:36] VITALS: BP 159/59
--- NOTE | 2020-11-05 04:45 | NUR ---
PT SLEPT MOST OF THE NIGHT. SHE REQUESTED TO SLEEP IN THE CHAIR FOR PART OF THE SHIFT. SHE IS STILL WEAK, BUT LESS SOA WITH ACTIVITY. AFIB ON TELE EARLIER IN THE NIGHT, BUT NOW SR W/ BBB. VSS. AFEBRILE. PT HAD LARGE BM DURING THE NIGHT. SHE IS ANTICIPATING GOING TO REHAB SOON. PROGRESSING TOWARD POC GOALS. WILL CONTINUE TO MONITOR.
[2020-11-05 05:40] VITALS: BP 142/61
[2020-11-05 07:55] VITALS: BP 162/72
--- NOTE | 2020-11-05 09:45 | HC ---
[facility] [place] [address] CONSULTATION Name: GUSTAVO CONROY Room #: [facility]- ADM IN M.R.#: [id number] Admission: 10/28/20 Attend Phys: Tee Noel MD Discharge: Date of : 42 Report #: [id number] THIS REPORT FOR: cc: Storm Oneill MD, Rene P. MD Althoff, Jeffrey R. MD ~ DOC #: [id number] Chente Puente MD DATE OF SERVICE: 10/31/2020 CHIEF COMPLAINT: Lower extremity ulcerations. HISTORY OF PRESENT ILLNESS: This is a 79-year-old female patient with history of multiple myeloma, on chemotherapy, who presented to the Emergency Department complaining of weakness. The patient has become increasingly weak and brought to the hospital. She has moved to the ICU due to her lethargy. I have been asked to see her with regard to lower extremity edema. She is not able to provide any information about herself at this time. MEDICATIONS: Include Januvia, losartan, terazosin, enteric-coated aspirin, atorvastatin, hydrocodone, Lasix, gabapentin, amlodipine, clonidine, acyclovir. ALLERGIES: LISINOPRIL AND SULFA. FAMILY HISTORY: Unknown. SOCIAL HISTORY: Negative for alcohol or tobacco use. REVIEW OF SYSTEMS: Not obtainable due to the patient's decreased level of consciousness. PHYSICAL EXAMINATION: VITAL SIGNS: At this time include temperature 100.6, pulse 106, ____. GENERAL: This is a chronically ill-appearing female patient who appears to be mostly somnolent. HEAD: Normocephalic. Nose and throat are clear. NECK: Supple. LUNGS: Diminished. HEART: Irregular. ABDOMEN: Soft. EXTREMITIES: Lower extremities demonstrate 3 to 4+ edema bilaterally. Some weeping. No clearcut ulceration noted at this time. LABORATORY DATA: Sodium 138, potassium 3.4, chloride 107, CO2 of 19, BUN 33, creatinine 2.7, glucose 74. White blood cell count 3.5 with a hemoglobin of 7.7. [address] [address] CONSULTATION Name: GUSTAVO CONROY Room #: 212-P [facility] IN M.R.#: [id number] Admission: 10/28/20 Attend Phys: Tee Noel MD Discharge: Date of : 42 Report #: [id number] CLINICAL IMPRESSION: 1. Cellulitis and lower extremity edema. 2. Acute kidney injury. 3. Bilateral lower extremity cellulitis. 4. Pancytopenia. 5. Severe sepsis. 6. Acute toxic metabolic encephalopathy. 7. History of multiple myeloma. RECOMMENDATIONS: Recommend elevation of the lower extremities as much as possible to reduce edema. Heel protectors in place at all time. We will recommend application of AmLactin to the legs, and then Xeroform gauze, ABD, and Kerlix and Keven from toes to knees, to be changed daily and p.r.n. Recommend q. 2 hours turning and positioning while in bed. Nutritional support as much as possible. Continue with other medical management. Appreciate being asked to see her in consultation. MD REI Foster/MAXIM/HERNAN <ELECTRONICALLY SIGNED> By: Chente Puente MD 11/05/20 0945 1635 [id number] Chente Puente MD /nt
[2020-11-05 10:06] LABS: ALBUMIN 1.8 g/dL (3.4-5.0); CALCIUM 7.1 mg/dL (8.5-10.1); CREATININE 1.4 mg/dL (0.6-1.0); PHOSPHORUS 2.3 mg/dL (2.6-4.7); POTASSIUM 3.1 mmol/L (3.5-5.1)
--- NOTE | 2020-11-05 11:33 | NUR ---
PT SITTING UP IN THE CHAIR, ASSESSMENT UNCHANGED. PT VOICES NO CONCERNS AT THIS TIME. WILL CONTINUE TO MONITOR AND FOLLOW POC.
[2020-11-05 12:06] VITALS: BP 147/70
--- NOTE | 2020-11-05 14:51 | NUR ---
Nutrition: REC order daily MVI and consider Megace.
[2020-11-05 15:43] VITALS: BP 153/77
--- NOTE | 2020-11-05 15:58 | NUR ---
PT UP IN CHAIR, TALKING WITH SPOUSE. VSS. ASSESSMENT UNCHANGED. WILL CONTINUE TO MONITOR AND FOLLOW POC.
[2020-11-05 19:15] VITALS: BP 176/84
[2020-11-05 22:58] VITALS: BP 172/85
[2020-11-06 07:23] VITALS: BP 166/77
[2020-11-06] MEDS ORDERED: METOPROLOL SUCC50 MG PO (08:38)
[2020-11-06] MEDS ORDERED: PACERONE 200 M200 M1 PO (08:38)
[2020-11-06] MEDS ORDERED: CEFDINIR300 MG PO (08:38)
[2020-11-06] MEDS ORDERED: CARDIZEM CD120 MG PO (08:39)
[2020-11-06 08:41] LABS: CALCIUM 7.7 mg/dL (8.5-10.1); CREATININE 1.2 mg/dL (0.6-1.0); PHOSPHORUS 2.3 mg/dL (2.6-4.7); POTASSIUM 3.2 mmol/L (3.5-5.1)
--- NOTE | 2020-11-06 09:15 | NUR ---
ASSUMED PT CARE AT 0700. PT SITTING IN CHAIR. 0845 ASSESSMENT PERFORMED CHARTED, CENTRAL LINE REMOVED PER ORDER BY DR LOCKETT. SUN REMOVED. COVID SWAB PERFORMED FOR [facility] ADMISSIONS. VSS. WILL CONTINUE TO MONITOR AND FOLLOW POC.
[2020-11-06 11:10] VITALS: BP 135/77
--- NOTE | 2020-11-06 11:44 | NUR ---
PT IN CHAIR WITH FAMILY AT BEDSIDE. ASSESSMENT UNCHANGED. PTS PLAN IS TO GO TO [facility] THIS AFTERNOON. VSS. WILL CONTINUE TO MONITOR AND FOLLOW POC.
--- NOTE | 2020-11-06 12:42 | NUR ---
GAVE REPORT TO TALTA HENDERSON RN. TALAT EXPRESSES NO FURTHER QUESTIONS OR CONCERNS AT THIS TIME.
--- NOTE | 2020-11-06 12:50 | NUR ---
Ins auth rec'd and pt dcing to [facility] acute rehab today. Nursing has updated the pt/family. RM 505. [facility] cm to follow for dcplanning.
== END 2020-11-06 13:17 | DRG 871 ==
LOC: ER 18:57 → ICU 21:32 → EROBS 21:32 → 2N 22:34 → ICU 10-29 00:07 → 2N 11-02 17:30
PROVIDERS: Emergency Medicine; Hospitalist; Internal Medicine Pulmonary Disease; Nurse Practitioner Family; ADMIT Hospitalist; ATTEND Hospitalist
DX: A41.9 Sepsis, unspecified organism (principal); J96.01 Acute respiratory failure with hypoxia; J18.9 Pneumonia, unspecified organism; G92 Toxic encephalopathy; R65.21 Severe sepsis with septic shock; E43 Unspecified severe protein-calorie malnutrition; N17.9 Acute kidney failure, unspecified; D61.818 Other pancytopenia; C90.00 Multiple myeloma not having achieved remission; C83.30 Diffuse large B-cell lymphoma, unspecified site; D84.9 Immunodeficiency, unspecified; L03.116 Cellulitis of left lower limb; L03.115 Cellulitis of right lower limb; I48.92 Unspecified atrial flutter; I48.20 Chronic atrial fibrillation, unspecified; Z68.41 Body mass index [BMI] 40.0-44.9, adult; C34.91 Malignant neoplasm of unspecified part of right bronchus or lung; Z20.822 Contact with and (suspected) exposure to COVID-19; E78.5 Hyperlipidemia, unspecified; R53.81 Other malaise; E11.42 Type 2 diabetes mellitus with diabetic polyneuropathy; E66.9 Obesity, unspecified; M19.90 Unspecified osteoarthritis, unspecified site; I44.0 Atrioventricular block, first degree; N18.9 Chronic kidney disease, unspecified; I45.10 Unspecified right bundle-branch block; R91.1 Solitary pulmonary nodule; E87.6 Hypokalemia; I12.9 Hypertensive chronic kidney disease with stage 1 through stage 4 chronic kidney disease, or unspecified chronic kidney disease; I87.8 Other specified disorders of veins; E11.22 Type 2 diabetes mellitus with diabetic chronic kidney disease; Z88.2 Allergy status to sulfonamides; Z88.8 Allergy status to other drugs, medicaments and biological substances
CPT/HCPCS: 10078; 10081

== ENCOUNTER 2020-11-06 10:46 | Inpatient (IN) | payer OTHER ==
[~2020-11-06] VITALS: Ht 160 cm; Wt 122.9 kg
[~2020-11-06 10:46] MED LIST changes: +ACYCLOVIR 400400 MG PO; +ATORVASTATIN CA20 MG PO; +BISOPROLOL FUMAR5 MG PO; +CARDIZEM CD120 MG PO; +CEFDINIR300 MG PO; +CLONIDINE HCL0.1 MG PO; +DEXAMETHASONE 44 M1 PO; +FUROSEMIDE 40 M40 M1 PO; +GABAPENTIN600 M1 PO; +HYDROCHLOROTH12.5 M2 PO; +HYDROCODON-ACE1 EAC7 PO; +KLOR-CON M2020 MEQ PO; +KYPROLIS30 MG; +METOPROLOL SUCC50 MG PO; +NEURONTIN300 MG PO; +NORVASC5 MG PO; +PACERONE 200 M200 M1 PO; +REVLIMID10 MG PO
--- NOTE | 2020-11-06 14:22 | NUR ---
1300 ADMITTED TO ROOM 504. PATIENT IS ALERT AND ORIENTED X4. PATIENT KUMAR'S, LADLE HANDLER ARE EQUAL. LUNGS ARE CLEAR AND DEMINISHED WITH LOOSE COUGH. ABD IS SOFT WITH BSX4. UP TO THE BSC TO VOID PRETTY COLORED URINE. PATIENT HAS PORT-A-CATH ON RIGHT CHEST WALL. PATIENT HAS 3+ EDEMA IN HER LOWER EXTREMITIES. WRAPS ARE ON BOTH LEGS. FAMILY AT BEDSIDE. FALL AND SAFETY PROTOCOLS IN PLACE. DENIES PAIN AT THIS TIME. PT/OT/ST EVALS TO BE DONE IN A.M. WILL CONTINUE TO MONITER.
--- NOTE | 2020-11-06 14:37 | NUR ---
Chart review, She new to acute rehab today. Patient A & O x 4, and able to make her needs know. PCP Dr Oneill. Dorcas is [facility] at [address]. Prior to hospital independent at home, she drives because her can no longer drive. 2 steps with bilat handrails to enter the home, then all on main level. goes to basement to do laundry. She able to manage her own medications. Has cane, rollator, and cpap from [employer]. Got her j-j 1 x covid vaccine in august 2020. Last time had tx for cancer at was last year. Has DPOA already, cm asked if could get copy and family stated should already have one on file here. Education on hh, team meetings and outpt therapy. Daughter in town from [place] and will drive here place if needed, till she is cleared to drive again. No hh or rehab in the past.
[2020-11-06 19:04] VITALS: BP 186/86; BP 186/863
[2020-11-06 20:10] VITALS: BP 175/80
--- NOTE | 2020-11-07 00:01 | NUR ---
PT ALERT AND ORIENTED X 4. UP IN RECLINER ALL EVENING. TRANSFERRED TO BED AT WITH ASSIST X 2. CPAP ON DURING THE NIGHT. LE WRAPS INTACT. RIGHT PORTACATH INTACT. PT VOIDING WITHOUT DIFFICULTY PER BSC. PT C/O COUGH. TESSALON PERLES GIVEN ORDERED. PT DENIES PAIN OR DISCOMFORT. BED ALARM ON FOR SAFETY. PT APPEARS TO BE SLEEPING ON HOURLY ROUNDS.
[2020-11-07 05:24] LABS: HEMATOCRIT 23.6 % (37.0-47.0); HEMOGLOBIN 8.2 gm/dL (12.0-15.0); MCH 32.4 pg (26.0-34.0); MCHC 34.8 g/dL (28.0-37.0); MCV 93.1 fL (80.0-100.0); RBC 2.54 mil/uL (4.20-5.00); RDW 20.4 % (10.5-14.5); WBC 4.5 thou/uL (4.0-11.0)
[2020-11-07 05:31] LABS: ALBUMIN 1.7 g/dL (3.4-5.0); CALCIUM 7.5 mg/dL (8.5-10.1); CREATININE 1.1 mg/dL (0.6-1.0); PHOSPHORUS 2.3 mg/dL (2.5-4.9)
[2020-11-07 05:55] LABS: POTASSIUM 2.6 mmol/L (3.5-5.1)
--- NOTE | 2020-11-07 06:10 | NUR ---
K+ 2.6 THIS MORNING. CALLED TO SHAQUILLE BRYSON NP WITH ORDERS RECEIVED.
[2020-11-07 07:06] LABS: FOLIC ACID 29.5 ng/mL (8.6-58.9)
[2020-11-07 08:30] VITALS: BP 144/111
[2020-11-07 08:35] VITALS: BP 139/68
--- NOTE | 2020-11-07 13:55 | NUR ---
Assumed pt care at 7am.Pt in bed resting without c/o.Assessment completed.vss. But elevated bp noted.Am meds given and well tolerated.Usha Purchasing Associate here,order noted.Potassium po given x2.Dr Goldsmith rounded on pt and no new order noted. Lymphydema wrap done by therapist.Pt up in chair most of the time this shift. Good endurance noted.Family here to visit.Fall bundle in place.Will continue to monitor.
[2020-11-07 20:28] VITALS: BP 164/67
[2020-11-07 23:06] LABS: GLYCOHEMOGLOBIN (HGB A1C) 7.3 % (4.8-5.6)
[2020-11-08 06:20] LABS: CALCIUM 7.4 mg/dL (8.5-10.1); MAGNESIUM 1.2 mg/dL (1.8-2.4); POTASSIUM 3.5 mmol/L (3.5-5.1)
[2020-11-08 08:00] VITALS: BP 146/76
--- NOTE | 2020-11-08 11:00 | NUR ---
ASSUMED CARE AT 0700. ALERT AND ORIENTATED X 3. DENIES ANY PAIN. REPORTED SOME DISCOMFORT FROM LYING IN BED TOO LONG. SACRAL AREA PINK WITH NO BREAKDOWN NOTED. BARRIER CREAM APPLIED. LYMPHEDEMA WRAP IN PLACE. BLE ELEVATED. PT REFUSED MEGESTROL TODAY, DR GANN NOTED. ADDED 2GM OF MAG SULFATE AND GIVEN VIA HER PORTACATH. UPON COMPLETION, VASCULAR TEAM NOTIFIED AND SUMEET DEASSESSED.
[2020-11-08 19:36] VITALS: BP 156/64
--- NOTE | 2020-11-08 23:36 | NUR ---
PT ASSESSMENT COMPLETED AND VSS. MEDS GIVEN ORDERED AND WELL TOLERATED. PT WANTED TO STAY IN HER CHAIR THIS EVENING AND REFUSED THE BED. UP TO THE BATHROOM WITH ASST/GAIT/WALKER. STEADY. LYMPH EDEMA WRAPS ON. PT RESTING WELL. DENIES NEEDS. WILL CONTINUE TO MONITOR FREQUENTLY.
[2020-11-09 07:19] VITALS: BP 138/78
--- NOTE | 2020-11-09 13:55 | NUR ---
ASSUMED CARE AT 0700. ALERT AND ORIENTATED X 4. DENIES ANY PAIN. UP WITH MIN ASSIST TO THE TOILET. NO BM TODAY. HAD COUPLE OF BOWEL MOVEMENTS YESTERDAY, C DIFF IS NEGATIVE. APPETITE IS FAIR, REPORTED LACK OF SALIVA AND PREFERS TO TAKE LIQUID DIET. PARTICIPATED WITH THERAPY.
[2020-11-09 19:14] VITALS: BP 176/76
--- NOTE | 2020-11-10 00:04 | NUR ---
PT ALERT AND ORIENTED X 4. AMB TO BR WITH WALKER AND ASSIST X 1. WRAPS INTACT TO BILAT LE'S. PT DENIES PAIN OR DISCOMFORT. PT SLEEPING IN RECLINER. CHAIR ALARM ON FOR SAFETY. PT APPEARS TO BE SLEEPING ON HOURLY ROUNDS.
[2020-11-10 05:26] LABS: CALCIUM 7.1 mg/dL (8.5-10.1); CREATININE 0.9 mg/dL (0.6-1.0); MAGNESIUM 1.1 mg/dL (1.8-2.4)
[2020-11-10 05:29] LABS: POTASSIUM 2.7 mmol/L (3.5-5.1)
--- NOTE | 2020-11-10 05:35 | NUR ---
K+ 2.7 THIS MORNING. CALLED TO SHAQUILLE BRYSON NP. SHE WILL PUT ORDERS IN.
[2020-11-10 09:48] VITALS: BP 149/76
--- NOTE | 2020-11-10 12:35 | PLAN ---
[facility] [place] [address] [place] [address] REHAB UNIT PLAN OF CARE Name: GUSTAVO CONROY Room #: 504-2 ADM IN M.R.#: [id number] Admission: 11/06/20 Attend Phys: Jaylon Goldsmith MD Discharge: Date of : 42 Report #: [id number] THIS REPORT FOR: cc: Storm Oneill MD, Rene P. MD Smithson,Jaylon Putnam MD ~ DOC #: [id number] Jaylon Goldsmith MD DATE OF SERVICE: 11/08/2020 PROGRESS NOTE/OVERALL PLAN OF CARE HISTORY OF PRESENT ILLNESS: The patient was seen yesterday in the Rehabilitation prieto. She was in no distress. Vitals were stable as noted. Her blood pressures are improved from her initial admission when she came in quite hypotensive. Bilateral lower extremities are wrapped with Keven wraps. She was able to lift bilateral lower extremities antigravity. She is able to follow basic 1-step commands without difficulty. She does have some exogenous obesity. Today, she was involved in functional rehabilitation with transfers at a min assist and she ambulated 70 feet min assist with a front-wheeled walker. In occupational therapy, upper body dressing, supervision with lower body dressing, moderate assistance. She also has been seen in speech therapy and does have mild to moderate cognitive deficits with qwtm-hn-ookrjvwa memory deficits. ASSESSMENT: 1. Toxic metabolic encephalopathy. 2. Medical complexity with generalized debilitation. 3. Severe sepsis. 4. Community-acquired pneumonia. 5. Acute hypoxemic respiratory failure. 6. Atrial fibrillation with rapid ventricular rate. 7. Acute renal insufficiency. 8. Bilateral lower extremity cellulitis with peripheral vascular disease. 9. Pancytopenia. 10. History of multiple myeloma, lymphoma of the neck and history of lung cancer. PLAN: The overall plan of care is based on the pre-admission screen and information garnered from therapy assessments. 1. Estimated length of stay probably around 10-14 days pending progress. 2. Medical prognosis is reasonably good. 3. Anticipated interventions includes the interdisciplinary acute inpatient rehabilitation program. 4. Anticipated functional outcomes would be for the patient to become modified independent with transfers, mobility and ADLs, so that she can hopefully return back to her home setting. She also was to improve as far as overall cognition. [address] [address] REHAB UNIT PLAN OF CARE Name: RAFIQFALLONKATRINA Room #: 504-2 ADM IN .R.#: [id number] Admission: 11/06/20 Attend Phys: Jaylon Goldsmith MD Discharge: Date of : 42 Report #: [id number] 5. Discharge destination would be back to the home setting where she lives in a house with her spouse. Two stairs to enter. She used a cane and a walker prior to admission. There is a daughter from [place] in town and able to help. 6. Expected therapy by discipline includes PT, OT and speech 1 hour per day each five days a week throughout the duration of the acute inpatient rehabilitation stay. ADDENDUM: The patient's prognosis for significant practical improvement within a reasonable period of time appears good. Given the patient's complex medical condition and risk of further medical complication, rehabilitation services could not be safely provided at a lower level of care such as a nursing home facility. Jaylon Goldsmith MD DGS <ELECTRONICALLY SIGNED> By: Jaylon Goldsmith MD 11/10/20 1235 1533 22 Jaylon Goldsmith MD /nt
--- NOTE | 2020-11-10 13:38 | NUR ---
ASSUMED CARE AT 0700. SLEPT FAIRLY WELL. ALERT AND ORIENTATED X 4. DENIES ANY PAIN. HAD COUPLE OF LOOSE SOFT STOOL THIS MORNING, LOMOTIL OFFERED BUT PT REFUSED FOR NOW. UP WITH MIN ASSIST WITH WALKER. LYMPHEDEMA WRAP IN PLACE AND WILL BE CHANGE TOMORROW, PARTICIPATING WITH THERAPY AND PROGRESSING TOWARDS GOAL.
[2020-11-10 18:21] LABS: HEMOGLOBIN 7.9 gm/dL (12.0-15.0); WBC 3.4 thou/uL (4.0-11.0)
[2020-11-10 18:22] LABS: HEMATOCRIT 24.6 % (37.0-47.0); MCH 31.5 pg (26.0-34.0); MCV 98.5 fL (80.0-100.0); PLATELET COUNT 214 thou/uL (150-400); RDW 21.2 % (10.5-14.5)
[2020-11-10 18:51] LABS: ANISOCYTOSIS 1+
[2020-11-10 19:57] VITALS: BP 146/63
--- NOTE | 2020-11-11 00:01 | NUR ---
PT ALERT AND ORIENTED X 4. AMB TO BR WITH WALKER AND ASSIST X 1. REQUIRES ASSIST OF 2 TO GET UP FROM CHAIR. LYMPHEDEMA WRAPS INTACT TO LE'S. CPAP ON DURING THE NIGHT. PT DENIES PAIN OR DISCOMFORT. BED ALARM ON FOR SAFETY. PT CHECKED ON HOURLY ROUNDS.
[2020-11-11 08:00] VITALS: BP 145/50
--- NOTE | 2020-11-11 13:08 | NUR ---
Team meeting, recommendation: lymphedema wraps bilat lower ext. elevate lower ext when not in therapy. daughter will stay here from [place] to help mom when goes home. dc 11/19/20 with ( pt, ot, nursing).
--- NOTE | 2020-11-11 19:24 | NUR ---
PT ALERT AND ORIENTED TIMES FOUR. VSS. PT DENIES PAIN/SOA. PT WORKED WELL WITH PT/OT. PT FAMILY AT BEDSIDE THIS AFTERNNON. PT PROGRESSING TOWRADS POC GOALS.
[2020-11-11 19:35] VITALS: BP 178/68
--- NOTE | 2020-11-12 02:42 | NUR ---
ASSESSMENT: PT REMAIN ALERT AND ORIENT TIMES FOUR. UP IN RECYLINER AT THE BEGINNING OF THE SHIFT. UP TO BR WITH WALKER AND GB TIMES TWO. ONE SMALL BM. RIGHT PORT-A-CATH INTACT. TOLERATING CPAP AT NOC. IN BED BY 2229. DENIES PAIN. LEFT THIGH OOZING CLEAR SEROUS DRAINAGE, 4X4 AND ABD DRESSING ATTACHED. SLOW PROGRESS TOWARDS DC GOALS, WILL CONTINUE TO MONITOR.
[2020-11-12 06:04] LABS: HEMATOCRIT 22.4 % (37.0-47.0); HEMOGLOBIN 7.6 gm/dL (12.0-15.0); MCH 32.3 pg (26.0-34.0); MCHC 33.7 g/dL (28.0-37.0); MCV 95.9 fL (80.0-100.0); PLATELET COUNT 205 thou/uL (150-400); RBC 2.34 mil/uL (4.20-5.00); RDW 21.8 % (10.5-14.5); WBC 3.1 thou/uL (4.0-11.0)
[2020-11-12 06:17] LABS: POTASSIUM 3.3 mmol/L (3.5-5.1)
[2020-11-12 06:37] LABS: MAGNESIUM 0.9 mg/dL (1.8-2.4)
[2020-11-12 07:15] VITALS: BP 121/68
[2020-11-12 12:41] LABS: ABSOLUTE NEUTROPHILS 1.1 thou/uL (1.4-8.2)
[2020-11-12 12:43] LABS: ANISOCYTOSIS 2+
--- NOTE | 2020-11-12 16:24 | NUR ---
PT RESTING COMFORTABLY. WORKED WITH PT/OT. PT AFEBRILE, ADEQUATE UOP, NO BM, APPROPRIATE APPETITE. WOUND CARE TO BE COMPLETED BY WOUND TEAM PER ORDERS. MAGNESSIUM/POTASSIUM REPLACED PER [facility] PROTOCAL. PT HAS BEEN THOUROUGHLY UPDATED AND EDUCATED ON PT CONDITION AND POC. PT SLOWLY PROGRESSING TOWARDS POC.
--- NOTE | 2020-11-12 16:58 | HC ---
[facility] [place] [address] [place] [address] CONSULTATION Name: GUSTAVO CONROY Room #: 512-P ADM IN M.R.#: [id number] Admission: 11/06/20 Attend Phys: Jaylon Goldsmith MD Discharge: Date of : 42 Report #: [id number] THIS REPORT FOR: cc: Storm Oneill MD, Rene P. MD Deutch, Neal B. PhD ~ DOC #: [id number] Sergey Almeida, PhD DATE OF SERVICE: 11/09/2020 ATTENDING PHYSICIAN: Jaylon Goldsmith M.D. TRAFFIC SIGNAL MECHANIC: Sergey Almeida, PhD CLINICAL PRESENTATION: The patient is a 79-year-old female admitted to the rehabilitation unit for a comprehensive inpatient rehabilitation program to improve functional mobility and activities of daily living and self-care secondary to deficits from a toxic metabolic encephalopathy. She was initially admitted to the hospital on 10/28/2000 with AMS, lethargy, weakness and low blood pressure. She responded well to intravenous fluids and was diagnosed with sepsis secondary to CA PE and cellulitis in both lower extremities. Her assessment on admission to the rehabilitation unit was acute toxic metabolic encephalopathy, medical complexity with generalized debility, severe sepsis, acute hypoxemic respiratory failure, atrial fibrillation with rapid ventricular response, now rate controlled, WEN, bilateral lower extremity cellulitis, PVD, pancytopenia, history of multiple myeloma and lymphoma of the neck and lung cancer. A complete description of her medical condition and history can be found in her medical record. Neuropsychological consultation was requested to provide assistance in the assessment of cognitive and emotional status and to provide recommendations and services. Prior to this recent medical event, the patient was living with her in their home. She was driving and providing additional support services for her . The patient was able to drive to her house when she lost consciousness and 911 was called. Her blood pressure had dropped. The patient is amnestic for the reason for her hospitalization. She had two children. A son has recently from pancreatic cancer. One daughter is living and was with her in her room during my assessment. TECHNIQUES UTILIZED: Clinical interview, review of medical records, staff consultation and behavioral observation, MMSE 2 standard version and clock drawing. EXAMINATION FINDINGS: The patient was alert and cooperative with the assessment. She does not present with aphasia. Her thoughts are logical and [facility] [address] [address] CONSULTATION Name: GUSTAVO CONROY Room #: [facility] IN M.R.#: [id number] Admission: 11/06/20 Attend Phys: Jaylon Goldsmith MD Discharge: Date of : 42 Report #: [id number] goal oriented. There is no evidence of thought disorder. She was able to describe the reason for her hospitalization upon having heard it from family members. Her symptoms include difficulty with sleep and appetite. Short-term memory and word finding are also reported as poor. She does not report difficulty with anxiety or depression. Although her son has recently and she is managing her health as well as that of her spouse. Performance on the MMSE 2 brief version is extremely low with a raw score of 11/16. She was 3/3 for initial registration, 3/5 for orientation to time, 5/[address] and 0/3 for immediate recall of 3 items after a brief time delay and distraction. Her performance improved on the MMSE 2 standard version to a raw score of 25/30. She was 5/5 for serial sevens, 2/2 for naming, 1/1 for repetition, 3/3 for auditory comprehension. She could read and follow a single command and write a sentence. The patient was able to accurately copy a simple geometric design. Clock drawings within normal limits. The patient presents with diminished immediate recall. However, attention and concentration along with executive functioning appeared to be improving. She most likely experienced a delirium initially, which is now resolving. Mild neurocognitive disorder is suggested likely due to medical etiology. 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 Her daughter indicated that the patient is having difficulty understanding her medical condition and how to manage her health care needs. Assistance from the daughter along with visiting nurses is likely to be necessary to help the patient in the management of medication as well nutrition and medical recommendations. Nutritional guidance is also indicated, consider a dietary consult. Thank you very much for allowing me to provide the consultation on this patient. Sergey Almeida, PhD NBD/SAB <ELECTRONICALLY SIGNED> By: Sergey Almeida, PhD 11/12/20 1658 [id number] Sergey Almeida, PhD /nt
[2020-11-12 19:52] VITALS: BP 142/57
--- NOTE | 2020-11-13 03:20 | NUR ---
ASSUMED CARE AT 1900 OF 11/12. PATIENT IS A&OX4, DENIES PAIN OR DISCOMFORT. MODERATE ASSIST OF 1 W/ TRANSFERS AND AMBULATION, USING GB AND WALKER. PATIENT WAS ABLE TO PEFORM ADL'S AT HS WITH MINIMAL ASSIST, REQUESTED FOR HELP TO PUT SOCKS ON AND WAS ABLE TO PERFORM OTHER ACTIVITIES WITH SUPERVISION. CPAP ON AT HS, CURRENTLY SLEEPING IN BED, BED ALARM ON AND CALL LIGHT W/IN REACH. WILL CONTINUE TO MONITOR.
[2020-11-13 07:45] VITALS: BP 118/54
--- NOTE | 2020-11-13 07:54 | NUR ---
PT SITTING UP IN CHAIR THIS AM. PT STATED SHE HAS PAIN TO RT THIGH OF 8 ON 1-10 SCALE. ADM NORCO 5MG AT THIS TIME. PT STATED LAST YEAR SHE WAS IN HOSPITAL AND HAD 3 TYPES OF CANCER AND ALL ARE IN REMISSION EXCEPT MULTIPLE MYELOMA AND SHE HAS PAIN RT LEG FROM THAT. PT VERY PLEASANT AND PARTICIPATING IN THERAPY. PT HAS LYMPHEDEMA WRAPS ON BILATERALY. PT USING WALKER TO AMBULATE. RT CHEST PORT-A-CATH IS NON-ACCESSED. PT STATED SHE GETS CHEMO EVERY COUPLE OF WEEKS.
[2020-11-13 09:51] LABS: ABSOLUTE RETIC COUNT 0.157 10^6/uL; OBSERVED RETIC COUNT 6.01 % (0.6-2.6)
[2020-11-13 10:01] LABS: % SATURATION 44 % (20-39); IRON 72 ug/dL (50-170); TIBC 163 ug/dL (250-450)
--- NOTE | 2020-11-13 11:36 | NUR ---
Cont. dcp as needed for dc on . [facility] able [facility] for [facility]h needs.
--- NOTE | 2020-11-13 15:00 | NUR ---
ADM NORCO 5MG PO FOR PAIN TO RT THIGH. PT SITTING UP IN CHAIR AT THIS TIME.
[2020-11-13 19:48] VITALS: BP 147/60
--- NOTE | 2020-11-13 20:10 | NUR ---
PT DID ASK FOR MEDICATIONS THIS SHIFT.
--- NOTE | 2020-11-14 | NUR ---
PT ALERT AND ORIENTED X 4. AMB TO BR WITH WALKER AND ASSIST X 1 WITHOUT DIFFICULTY. WRAPS INTACT TO BILAT LE'S. PT DENIES PAIN OR DISCOMFORT. CPAP ON DURING THE NIGHT. BED ALARM ON FOR SAFETY. PT APPEARS TO BE SLEEPING ON HOURLY ROUNDS. PT CALLED FOR HS MEDS APPROPRIATELY.
[2020-11-14 05:06] LABS: HEMATOCRIT 24.9 % (37.0-47.0); HEMOGLOBIN 8.5 gm/dL (12.0-15.0); MCHC 34.1 g/dL (28.0-37.0); MCV 96.6 fL (80.0-100.0); RBC 2.57 mil/uL (4.20-5.00); RDW 20.9 % (10.5-14.5)
--- NOTE | 2020-11-14 05:59 | NUR ---
MAGNESIUM 0.9 THIS MORNING. CALLED TO [place] ALLRED NP. NO NEW ORDERS RECEIVED.
[2020-11-14 08:00] VITALS: BP 133/66
--- NOTE | 2020-11-14 17:39 | NUR ---
ASSUMED CARE AT 0700. ALERT AND ORIENTATED X 4. REPORTED ACHE IN HER R THIGH AND AGGRAVATED WITH ACTIVITY. HYDROCODONE GIVEN AND PT REQ TO GET PRIOR TO THERAPY AT 0700. CINDY BENZOL STILL OPERATOR LYNDA IN THE AM AND ADDED VOLTAREN GEL WHICH SEEMS TO HELP. UP WITH SBA TO BATHROOM. PARTICIPATING WITH THERAPY WITH GOOD PROGRESS. LYMPHEDEMA TREATMENT DONE TODAY. APPETITE FAIR. DIURESING ADEQ.
[2020-11-14 20:15] VITALS: BP 118/61
--- NOTE | 2020-11-15 04:37 | NUR ---
ASSUMED CARE AT 1900 OF 11/14. PATIENT IS A&OX4. REPORTED PAIN IN RIGHT THIGH, WHICH WAS MANAGED WITH PRN HYDROCODONE. ASSIST OF 1 WITH GB AND WALKER FOR TRANSFERS, AND STAND BY ASSIST FOR AMBULATION. PERFORMED ADLS W/ SUPERVISION TO GET READY FOR BED, ONLY REQUIRED ASSISTANCE WITH PUTTING SOCKS ON. CPAP ON AT HS. CURRENTLY SLEEPING IN BED, BED ALARM ON AND CALL LIGHT W/IN REACH. WILL CONTINUE TO MONITOR.
[2020-11-15 07:15] VITALS: BP 127/57
--- NOTE | 2020-11-15 08:57 | NUR ---
PT SITTING UP IN CHAIR THIS AM. PT STATED SHE HAD A PAIN PILL THIS AM EARLY AND IT HELPED RT THIGH PAIN. PT PLEASANT AND SMILING. PT REFUSED ICE AT THIS TIME TO RT HIP. PT LUNGS CLEAR. PT UP WITH WALKER X1 ASSIST. PT DID ASK FOR MEDS THIS AM.
--- NOTE | 2020-11-15 12:44 | NUR ---
IV NURSE IS HERE TO ACCESS PORT-A-CATH.
--- NOTE | 2020-11-15 13:05 | NUR ---
PT RECIEVED HYDROCODONE 5MG PO FOR PAIN TO RT THIGH.
--- NOTE | 2020-11-15 14:43 | NUR ---
ADM MAG 2GM IV X1 PER ORDERS.
[2020-11-15 20:44] VITALS: BP 139/56
[2020-11-16 05:38] LABS: ALBUMIN 1.9 g/dL (3.4-5.0); CALCIUM 7.5 mg/dL (8.5-10.1); MAGNESIUM 1.5 mg/dL (1.8-2.4); PHOSPHORUS 3.8 mg/dL (2.5-4.9); POTASSIUM 4.2 mmol/L (3.5-5.1)
[2020-11-16 08:00] VITALS: BP 125/60
--- NOTE | 2020-11-16 10:40 | NUR ---
PT SITTING UP IN CHAIR. PT LUNGS CLEAR. PT DENIES PAIN AT THIS TIME. PT USES WALKER TO AMBULATE WITH STEADY GAIT. PT VERY CHEERFUL. NO COMPLAINTS.
--- NOTE | 2020-11-16 12:59 | NUR ---
ADM HYDROCODONE 5MG PO FOR PAIN TO RT THIGH.
--- NOTE | 2020-11-16 17:40 | NUR ---
FAMILY HERE AND PT WALKED OUT TO DINING ROOM TO PLAY CARDS. PT WAS ABLE TO WALK WITH WALKER AND GAIT BELT WITHOUT ANY ISSUES.
[2020-11-16 19:29] VITALS: BP 135/55
[2020-11-17 05:26] LABS: CALCIUM 7.7 mg/dL (8.5-10.1); MAGNESIUM 1.6 mg/dL (1.8-2.4); POTASSIUM 4.5 mmol/L (3.5-5.1)
[2020-11-17 08:35] VITALS: BP 121/67
--- NOTE | 2020-11-17 17:35 | NUR ---
ASSUMED CARE AT 0700. ALERT AND ORIENTATED X 4. REPORTED PAIN AT 7/10 TO HER R HIP/THIGH AREA AND HYDROCODONE AND VOLTAREN GEL IS HELPING. PARTICIPATING WITH THERAPY AND PROGRESSING TOWARDS GOAL. APPETITE FAIR. HAD A BM TODAY. DIURESING ADEQ. LYMPHEDEMA WRAP IN PLACE. R PORTACATH ASSESSED WITH NO SIGN OF INFLAMMATION. FLUSHES WELL.
[2020-11-17 20:20] VITALS: BP 166/74
--- NOTE | 2020-11-18 04:23 | NUR ---
ASSUMED CARE AT 1900 OF 11/17. PATIENT A&OX4, DENIES PAIN OR SOB. ASSIST OF 1 WITH TRANSFERS USING GB AND WALKER, STAND BY ASSIST W/ AMBULATION. LYMPHEDEMA WRAPS ARE IN ON BLE. CPAP ON AT HS. SLEEPING IN BED, BED ALARM ON , AND CALL LIGHT W/IN REACH. WILL CONTINUE TO MONITOR.
[2020-11-18 05:42] LABS: CALCIUM 7.7 mg/dL (8.5-10.1); MAGNESIUM 1.6 mg/dL (1.8-2.4); POTASSIUM 4.6 mmol/L (3.5-5.1)
--- NOTE | 2020-11-18 08:03 | NUR ---
ASSUMED CARE AT 0700. PATIENT IS ALERT AND ORIENTED X4. PAIENT KUMAR'S, [facility] ARE EQUAL. LUNGS ARE CLEAR. ABD IS SOFT WITH BSX4. UP TO THE BATHROOM WITH ASSIST OF 1 AND GAIT BELT TO VOID PRETTY COLORED URINE. PATIENT HAS RIGHT PORTCATH S.L. THAT IS PATIENT AND INTACT. FALL AND SAFETY PROTOCOLS IN PLACE. CONTINUES ON SCED AND PRN PAIN MEDS. LYMPHEDEMA WRAPS ON. WILL CONTINUE TO MONITER. PLAN FAMILY TEACHING WITH P.Param. O.T. TODAY. WILL CONTINUE TO MONITER.
--- NOTE | 2020-11-18 09:54 | NUR ---
cm consult to see if hh able to do lymphedema wraps at home and flexi patch, a pneumonic pump after hh has started. checking with [facility].
[2020-11-18 15:17] LABS: HEMATOCRIT 22.7 % (37.0-47.0); HEMOGLOBIN 7.3 gm/dL (12.0-15.0); MCH 32.8 pg (26.0-34.0); MCV 102.3 fL (80.0-100.0); RBC 2.22 mil/uL (4.20-5.00); RDW 20.9 % (10.5-14.5); WBC 2.7 thou/uL (4.0-11.0)
[2020-11-18] MEDS ORDERED: HYDROCODON-ACE1 EAC7 PO (17:12)
[2020-11-18 19:45] VITALS: BP 147/63
--- NOTE | 2020-11-19 02:39 | NUR ---
ASSUMED CARE OF PT AT 1915 ON 11/18/20. PT IS A&OX4. IS ON ROOM AIR. DENIES PAIN IN BILAT LES. LYMP WRAPS C/D/I. IS STABLE. IS UP MOD I IN ROOM. PT SCHEDULED TO DC LATER TODAY. HAS RIGHT CHEST PORT-A-CATH ACCESSED. HOURLY ROUNDING CONTINUED THIS SHIFT. PT IS ABLE TO TURN SELF IN BED. WEARS CPAP AT HS. LABS & VITALS REVIEWED. CALL LIGHT WITHIN REACH. WILL CONTINUE TO MONITOR.
[2020-11-19] MEDS ORDERED: CENTRUM SILVER1 EAC4 PO (10:07)
[2020-11-19] MEDS ORDERED: PACERONE 200 M200 M1 PO (10:07)
[2020-11-19] MEDS ORDERED: METOPROLOL SUCC50 MG PO (10:07)
[2020-11-19] MEDS ORDERED: PROBIOTIC1 EAC1 PO (10:07)
[2020-11-19] MEDS ORDERED: CARDIZEM CD120 MG PO ×2 (10:07→12:11)
[2020-11-19] MEDS ORDERED: MAXZIDE-25 MG1 EACH PO (10:19)
--- NOTE | 2020-11-19 11:06 | NUR ---
ASSUMED CARE AT 0700. PATIENT IS ALERT AND ORIENTED X4. PATIENT KUMAR'S, PAPER RULER ARE EQUAL. LUNGS ARE CLEAR. ABD IS SOFT WITH BSX4. UP IN CHAIR FOR MEALS. PATIENT IS MOD/I IN ROOM WITH WALKER. PATIENT IS UP TO THE BATHROOM TO VOID PRETTY COLORED URINE. PATIENT HAS LYMPHEDEMA WRAPS ON AND INTACT. PLAN IS FOR PATIENT TO D/C LATER TODAY. AWAITING CO. TO DO LYMPHEDEMA WRAPS AT HOME. VISCOSITY INSPECTOR HERE TO SEE PATIENT. MEDS REVIEWED. FALL AND SAFETY PROTOCOLS IN PLACE. C/O PAIN IN HER LOWER EXTREMITIES. MEDICATED WITH PRN PAIN MED. CONTINUES TO PROGRESS TOWARDS D/C GOALS. WILL CONTINUE TO MONITER.
[2020-11-19 11:48] VITALS: BP 147/63
--- NOTE | 2020-11-19 11:55 | NUR ---
[facility] will be able to assist her at home with lymphedema therapy and flex pneumonic pump at home through her insurance. Spoke with maxine 3 x today to reeducate on dcp and that hh will call her once she is home and that bedside nurse will have dc paper work not cm.
[2020-11-19 12:40] VITALS: BP 147/63
[2020-11-19 12:46] VITALS: BP 147/63
[2020-11-19] MEDS ORDERED: CARDIZEM LA240 M1 PO (14:13)
--- NOTE | 2020-11-19 14:35 | NUR ---
DISCHARGE INSTRUCTIONS GIVEN TO PATIENT AND . PATIENT IS MOD/I IN ROOM SCRIPTS SENT TO [facility]. PATIENT WAS ABLE TO TRANSFER FROM CHAIR TO W/C. PORTACATH DEACTIVATED. PATIENT LEFT UNIT IN GOOD CONDITION.
[2020-11-21] MEDS ORDERED: HYDROCODON-ACE1 EAC7 PO (16:05)
== END 2020-11-19 14:46 | disposition home health service (06) | DRG 91 ==
PROVIDERS: Hospitalist; Internal Medicine Hematology & Oncology; Nurse Practitioner; Nurse Practitioner Family; ADMIT Physical Medicine & Rehabilitation; ATTEND Physical Medicine & Rehabilitation
DX: G92 Toxic encephalopathy (principal); A41.9 Sepsis, unspecified organism; J96.01 Acute respiratory failure with hypoxia; J18.9 Pneumonia, unspecified organism; R65.21 Severe sepsis with septic shock; E43 Unspecified severe protein-calorie malnutrition; N17.9 Acute kidney failure, unspecified; L03.116 Cellulitis of left lower limb; L03.115 Cellulitis of right lower limb; D61.818 Other pancytopenia; Z68.42 Body mass index [BMI] 45.0-49.9, adult; C90.00 Multiple myeloma not having achieved remission; R53.81 Other malaise; I48.91 Unspecified atrial fibrillation; E66.09 Other obesity due to excess calories; G31.84 Mild cognitive impairment of uncertain or unknown etiology; D64.9 Anemia, unspecified; E11.40 Type 2 diabetes mellitus with diabetic neuropathy, unspecified; E87.6 Hypokalemia; E83.42 Hypomagnesemia; E11.51 Type 2 diabetes mellitus with diabetic peripheral angiopathy without gangrene; Z85.118 Personal history of other malignant neoplasm of bronchus and lung; Z85.72 Personal history of non-Hodgkin lymphomas; Z92.21 Personal history of antineoplastic chemotherapy; Z88.2 Allergy status to sulfonamides; Z88.8 Allergy status to other drugs, medicaments and biological substances
CPT/HCPCS: 10112

== ENCOUNTER 2020-12-15 13:09 | Emergency (ER) | payer OTHER ==
[~2020-12-15] VITALS: Ht 160 cm; Wt 108.9 kg
[~2020-12-15 13:09] MED LIST changes: +CARDIZEM LA240 M1 PO; +CENTRUM SILVER1 EAC4 PO; +MAXZIDE-25 MG1 EACH PO; +PROBIOTIC1 EAC1 PO
[2020-12-15] MEDS ORDERED: DORYX MPC120 MG PO (14:18)
[2020-12-15] MEDS ORDERED: DILTIAZEM ER180 M2 PO (14:18)
[2020-12-15 14:29] LABS: ABSOLUTE NEUTROPHILS 4.4 thou/uL (1.4-8.2); BASOPHILS 0.4 % (0.0-2.0); EOSINOPHILS 0.5 % (0.0-3.0); HEMATOCRIT 29.5 % (37.0-47.0); HEMOGLOBIN 9.8 gm/dL (12.0-15.0); LYMPHOCYTES 29.1 % (24.0-44.0); MCHC 33.1 g/dL (28.0-37.0); MCV 102.6 fL (80.0-100.0); MONOCYTES 6.5 % (1.0-8.0); PLATELET COUNT 202 thou/uL (150-400); POLYS 63.5 % (36.0-66.0); RBC 2.88 mil/uL (4.20-5.00); RDW 14.7 % (10.5-14.5); WBC 6.9 thou/uL (4.0-11.0)
[2020-12-15 14:35] LABS: ANION GAP 4 mmol/L (7-16); BUN 7 mg/dL (7-18); CALCIUM 8.3 mg/dL (8.5-10.1); CHLORIDE 108 mmol/L (98-107); CO2 29 mmol/L (21-32); CREATININE 0.9 mg/dL (0.6-1.0); GLUCOSE 123 mg/dL (74-106); POTASSIUM 3.9 mmol/L (3.5-5.1); SODIUM 141 mmol/L (136-145)
[2020-12-15 14:45] LABS: ALBUMIN 3.2 g/dL (3.4-5.0); SGOT 16 U/L (15-37); SGPT 17 U/L (30-65); TOTAL BILIRUBIN 0.5 mg/dL (0.2-1.0); TOTAL PROTEIN 5.6 g/dL (6.4-8.2); TROPONIN-I <0.06 ng/mL (<0.06)
[2020-12-15] MEDS ORDERED: CARDIZEM CD360 MG PO (15:12)
[2020-12-15 15:18] VITALS: BP 144/105
--- NOTE | 2020-12-15 16:04 | EKG ---
[place] [address] [address] [facility] [email or web address] [address] ELECTROCARDIOGRAM REPORT Name: GUSTAVO CONROY Room #: [facility] Italo#: [id number] Admission: 12/15/20 Attend Phys: Discharge: 12/15/20 Date of : 42 Report #: [id number] [facility] ED Test Date: 2020-12-15 Test Time: 14:27:30 Pat Name: GUSTAVO CONROY Department: Room: Gender: F Auxiliary Operator: : 1940 Requested By: Jaylon Gaines Order Number: [id number] MD: Emmett Hernandez Measurements Intervals [place] Rate: 61 P: 35 MO: 238 QRS: -56 QRSD: 151 T: 85 QT: 473 QTc: 477 Interpretive Statements Sinus rhythm Prolonged MO interval Right bundle branch block LVH with IVCD and secondary repol abnrm Compared to ECG 10/31/2020 09:57:49 First degree AV block now present Right bundle-branch block now present Intraventricular conduction delay now present Left ventricular hypertrophy now present Early repolarization now present Left anterior fascicular block no longer present T-wave abnormality no longer present Electronically Signed On 12-15-2020 16:04:18 CDT by Emmett Hernandez [email or web address] <ELECTRONICALLY SIGNED> By: Emmett Hernandez MD, [facility] 12/15/20 1604 1427 1427 Emmett Hernandez MD, [facility] /EPI
== END 2020-12-15 15:23 | disposition home or self-care (01) ==
LOC: ER 13:09
PROVIDERS: Emergency Medicine
DX: I10 Essential (primary) hypertension (principal); E66.9 Obesity, unspecified; I48.91 Unspecified atrial fibrillation; Z79.2 Long term (current) use of antibiotics; Z79.82 Long term (current) use of aspirin; Z79.899 Other long term (current) drug therapy; Z88.2 Allergy status to sulfonamides; Z88.8 Allergy status to other drugs, medicaments and biological substances; Z68.41 Body mass index [BMI] 40.0-44.9, adult